=== PATIENT | male | born 1985 | race Caucasian/White ===

== ENCOUNTER 2017-02-21 00:16 | Emergency (ER) | payer OTHER | END 2017-02-21 04:04 | disposition home or self-care (01) | LOC: CED 00:16 | DX: S02.5XXA Fracture of tooth (traumatic), initial encounter for closed fracture (principal); X58.XXXA Exposure to other specified factors, initial encounter; Y92.39 Other specified sports and athletic area as the place of occurrence of the external cause | CPT/HCPCS: 96372; 99283; J1885 ==